=== PATIENT | male | born 1950 | race Caucasian/White ===

== ENCOUNTER 2016-10-20 12:07 | Emergency (ER) | payer OTHER ==
[~2016-10-20] VITALS: Ht 188 cm; Wt 100.0 kg
[~2016-10-20 12:07] MED LIST: 1-ME1LIQ PO; FEXO180 PO; PRAV40TA2 PO
[2016-10-20 12:11] VITALS: BP 185/99; PULSE 60; RESP 20; TEMP 98.6; O2SAT 95
[2016-10-20] MEDS ORDERED: LORA-361 PO (12:54)
[2016-10-20] MEDS ORDERED: ASPI1TAB69 PO (12:54)
[2016-10-20] MEDS ORDERED: AMLO5TAB2 PO (12:54)
[2016-10-20] MEDS ORDERED: SUDA30TA2 PO (12:54)
[2016-10-20] MEDS ORDERED: PRAV40TA2 PO (12:54)
[2016-10-20 12:56] VITALS: RESP 16; O2SAT 98
[2016-10-20 12:59] VITALS: BP 169/81; PULSE 58; RESP 16; O2SAT 98
[2016-10-20] MEDS ORDERED: SODIUM CHLORIDE 0.9% FLUSH 10 ML FLUSH IVF PRN (13:00)
[2016-10-20 13:14] VITALS: BP_SYST 158; BP_SYST 164; BP_SYST 166; BP_DIAS 86; BP_DIAS 87; BP_DIAS 89; RESP 16
[2016-10-20 13:20] LABS: AUTOMATED NEUTROPHIL # 4.2 TH/MM3 (1.8-7.7); BASOPHIL # 0.1 TH/MM3 (0-0.2); BASOPHIL % 0.7 % (0.0-2.0); EOSINOPHIL # 0.2 TH/MM3 (0-0.4); EOSINOPHIL % 2.5 % (0.0-4.0); HEMATOCRIT 45.6 % (39.0-51.0); HEMO FLAGS DIFF FINAL; LYMPH % 30.3 % (9.0-44.0); LYMPHOCYTE # 2.2 TH/MM3 (1.0-4.8); MEAN CELL VOLUME 89.2 FL (80.0-100.0); MEAN CORPUSCULAR HGB CONC 34.7 % (32.0-36.0); MONO % 9.5 % (0.0-8.0); PLATELET COUNT 199 TH/MM3 (150-450); RED BLOOD COUNT 5.11 MIL/MM3 (4.50-5.90); RED CELL DISTRIBUTION WIDTH 12.9 % (11.6-17.2); WHITE BLOOD COUNT 7.4 TH/MM3 (4.0-11.0)
[2016-10-20 13:28] LABS: APTT (PATIENT) 25.5 SEC (24.3-30.1)
--- NOTE | 2016-10-20 13:28 | PD ---
HPI Chief Complaint: Dizziness Time Seen by Provider: 13:08 Travel History International Travel<30 days: No Contact w/Intl Traveler<30days: No Traveled to known affect area: No History of Present Illness HPI Patient is a 65-year-old male presenting to emergency for evaluation of dizziness. Patient's symptoms started yesterday morning, lasted 3-4 hours and then resolved on its own. They restarted this morning at approximately 8 AM, patient states he felt dizzy worse with movement, as if the room is spinning. It was accompanied by mild nausea but no vomiting. Patient took 25 mg of meclizine this morning at 9 AM. Patient's denying any chest pain, shortness of breath, fever, chills, nasal congestion, abdominal pain. He reports that this happen to him in the past, he's had an outpatient MRI through an ear, nose, and throat doctor, stress test 2-3 months ago which was normal per his report. Patient states his been checking his heart rate today and has been the 50s. He also reports taking Claritin-D as well as Sudafed for his sinuses. The past medical history significant for hypertension and hyperlipidemia, he reports taking his amlodipine this morning. PFSH Past Medical History High Cholesterol: Yes Diabetes: No (BORDERLINE ) Diminished Hearing: No Hypertension: Yes Tetanus Vaccination: < 5 Years Influenza Vaccination: No (ALLERGIES ) Past Surgical History Ear Surgery: Yes (repair of ruptured tympanic membrane) Tonsillectomy: Yes Social History Alcohol Use: Yes (OCCASIONALLY) Tobacco Use: Yes (5 cig per day ) Substance Use: No Allergies-Medications (Allergen,Severity, Reaction): Coded Allergies: Flu Vaccine (Verified Allergy, Severe, Anaphylaxis, 10/20/16) Reported Meds & Prescriptions Reported Meds & Active Scripts Active Reported Pravastatin 40 Mg Tab 40 Mg PO HS Claritin (Loratadine) 10 Mg Tab 10 Mg PO DAILY Sudafed (Pseudoephedrine HCl) 30 Mg Tab 30 Mg PO Q6H PRN Aspirin 81 Mg Tabdr 81 Mg PO DAILY Amlodipine (Amlodipine Besylate) 5 Mg Tab 10 Mg PO DAILY Review of Systems Except as stated in HPI: all other systems reviewed are Neg HENT: No: Headaches Cardiovascular: No: Chest Pain or Discomfort Gastrointestinal: Positive: Nausea, No: Abdominal Pain Neurologic: Positive: Dizziness Physical Exam Narrative GENERAL: Well-developed, well-nourished, alert elderly gentleman. Resting comfortably in no acute distress. Family at bedside. SKIN: Focused skin assessment warm/dry. HEAD: Atraumatic. Normocephalic. EYES: Pupils equal and round. No scleral icterus. No injection or drainage. ENT: No nasal bleeding or discharge. Mucous membranes pink and moist. NECK: Trachea midline. No JVD. CARDIOVASCULAR: Bradycardic. No murmur appreciated. RESPIRATORY: No accessory muscle use. Clear to auscultation. Breath sounds equal bilaterally. GASTROINTESTINAL: Abdomen soft, non-tender, nondistended. Hepatic and splenic margins not palpable. MUSCULOSKELETAL: No obvious deformities. No clubbing. No cyanosis. No edema. NEUROLOGICAL: Awake and alert. No obvious cranial nerve deficits. Motor grossly within normal limits. Normal speech. PSYCHIATRIC: Appropriate mood and affect; insight and judgment normal. Data Data Last Documented VS Vital Signs Date Time Temp Pulse Resp B/P Pulse Ox O2 Delivery O2 Flow Rate FiO2 10/20/16 13:14 52 16 166/86 58 16 158/87 57 16 164/89 10/20/16 12:59 98 Room Air 10/20/16 12:11 98.6 Orders Electrocardiogram (10/20/16 ) Complete Blood Count With Diff (10/20/16 12:53) Comprehensive Metabolic Panel (10/20/16 12:53) Magnesium (Mg) (10/20/16 12:53) Ckmb (Isoenzyme) Profile (10/20/16 12:53) Troponin I (10/20/16 12:53) Act Partial Throm Time (Ptt) (10/20/16 12:53) Prothrombin Time / Inr (Pt) (10/20/16 12:53) Urinalysis - C+S If Indicated (10/20/16 12:53) Ecg Monitoring (10/20/16 12:53) Iv Access Insert/Monitor (10/20/16 12:53) Oximetry (10/20/16 12:53) Sodium Chloride 0.9% Flush (Ns Flush) (10/20/16 13:00) Orthostatic Vital Signs (10/20/16 13:10) Labs Laboratory Tests Test 10/20/16 13:00 White Blood Count 7.4 TH/MM3 Red Blood Count 5.11 MIL/MM3 Hemoglobin 15.8 GM/DL Hematocrit 45.6 % Mean Corpuscular Volume 89.2 FL Mean Corpuscular Hemoglobin 31.0 PG Mean Corpuscular Hemoglobin 34.7 % Concent Red Cell Distribution Width 12.9 % Platelet Count 199 TH/MM3 Mean Platelet Volume 8.5 FL Neutrophils (%) (Auto) 57.0 % Lymphocytes (%) (Auto) 30.3 % Monocytes (%) (Auto) 9.5 % Eosinophils (%) (Auto) 2.5 % Basophils (%) (Auto) 0.7 % Neutrophils # (Auto) 4.2 TH/MM3 Lymphocytes # (Auto) 2.2 TH/MM3 Monocytes # (Auto) 0.7 TH/MM3 Eosinophils # (Auto) 0.2 TH/MM3 Basophils # (Auto) 0.1 TH/MM3 CBC Comment DIFF FINAL Differential Comment Prothrombin Time 11.0 SEC Prothromb Time International 1.0 RATIO Ratio Activated Partial 25.5 SEC Thromboplast Time Sodium Level 136 MEQ/L Potassium Level 3.7 MEQ/L Chloride Level 100 MEQ/L Carbon Dioxide Level 25.6 MEQ/L Anion Gap 10 MEQ/L Blood Urea Nitrogen 16 MG/DL Creatinine 0.85 MG/DL Estimat Glomerular Filtration 90 ML/MIN Rate Random Glucose 102 MG/DL Calcium Level 9.6 MG/DL Magnesium Level 2.1 MG/DL Total Bilirubin 0.6 MG/DL Aspartate Amino Transf 48 U/L (AST/SGOT) Alanine Aminotransferase 69 U/L (ALT/SGPT) Alkaline Phosphatase 68 U/L Total Creatine Kinase 75 U/L Troponin I LESS THAN 0.02 NG/ML Total Protein 7.1 GM/DL Albumin 4.0 GM/DL MDM Medical Decision Making Medical Screen Exam Complete: Yes Emergency Medical Condition: Yes Medical Record Reviewed: Yes Interpretation(s) Laboratory Tests Test 10/20/16 13:00 White Blood Count 7.4 TH/MM3 Red Blood Count 5.11 MIL/MM3 Hemoglobin 15.8 GM/DL Hematocrit 45.6 % Mean Corpuscular Volume 89.2 FL Mean Corpuscular Hemoglobin 31.0 PG Mean Corpuscular Hemoglobin 34.7 % Concent Red Cell Distribution Width 12.9 % Platelet Count 199 TH/MM3 Mean Platelet Volume 8.5 FL Neutrophils (%) (Auto) 57.0 % Lymphocytes (%) (Auto) 30.3 % Monocytes (%) (Auto) 9.5 % Eosinophils (%) (Auto) 2.5 % Basophils (%) (Auto) 0.7 % Neutrophils # (Auto) 4.2 TH/MM3 Lymphocytes # (Auto) 2.2 TH/MM3 Monocytes # (Auto) 0.7 TH/MM3 Eosinophils # (Auto) 0.2 TH/MM3 Basophils # (Auto) 0.1 TH/MM3 CBC Comment DIFF FINAL Differential Comment Prothrombin Time 11.0 SEC Prothromb Time International 1.0 RATIO Ratio Activated Partial 25.5 SEC Thromboplast Time Sodium Level 136 MEQ/L Potassium Level 3.7 MEQ/L Chloride Level 100 MEQ/L Carbon Dioxide Level 25.6 MEQ/L Anion Gap 10 MEQ/L Blood Urea Nitrogen 16 MG/DL Creatinine 0.85 MG/DL Estimat Glomerular Filtration 90 ML/MIN Rate Random Glucose 102 MG/DL Calcium Level 9.6 MG/DL Magnesium Level 2.1 MG/DL Total Bilirubin 0.6 MG/DL Aspartate Amino Transf 48 U/L (AST/SGOT) Alanine Aminotransferase 69 U/L (ALT/SGPT) Alkaline Phosphatase 68 U/L Total Creatine Kinase 75 U/L Troponin I LESS THAN 0.02 NG/ML Total Protein 7.1 GM/DL Albumin 4.0 GM/DL Vital Signs Date Time Temp Pulse Resp B/P Pulse Ox O2 Delivery O2 Flow Rate FiO2 10/20/16 12:59 58 16 169/81 98 Room Air 10/20/16 12:56 16 98 Room Air 10/20/16 12:45 17 Room Air 10/20/16 12:11 98.6 60 20 185/99 95 Room Air Differential Diagnosis Benign positional vertigo versus central vertigo versus cardiac arrhythmia versus electrolyte abnormality versus orthostatic hypotension versus symptomatic bradycardia versus other Narrative Course Patient is a 65-year-old male presenting to the emergency room for evaluation of dizzy spells. Patient has had a history of the same, he's had a negative outpatient workups per his report. Workup includes MRI, stress test, EKGs, labs with a [employer] maintenance worker and ear, nose, throat specialist. Patient has been taking Claritin-D and Sudafed for a sinus condition, he was encouraged to take one or the other not both. Or take plain Claritin and the Sudafed. Upon reassessment patient was no longer feeling dizzy. CBC, chemistry, coags unremarkable, troponin is negative. Patient was encouraged to maintain adequate fluid intake, he was encouraged to follow up with his primary doctor regarding possible referral for vestibular rehabilitation. Patient was advised to return to emergency department immediately for any new or worsening symptoms. Patient will be given refill of meclizine. Patient and family member verbalized understanding of discharge instructions. Patient is stable for discharge. Diagnosis Primary Impression: Dizziness Referrals: Primary Care Physician Patient Instructions: Dizziness (ED), General Instructions, Vertigo (ED) Additional Instructions: Follow-up with your primary doctor Return to emergency department immediately for any new or worsening symptoms Med/Other Pt SpecificInfo: Prescription(s) given Scripts Meclizine 25 Mg Tab25 Mg PO TID PRN (VERTIGO) 10 Days Ref 0 Prov:Apurva Huitron 10/20/16 Disposition: 01 DISCHARGE HOME Condition: Stable Apurva Huitron Oct 20, 2016 13:28
[2016-10-20 13:38] LABS: ALKALINE PHOSPHATASE 68 U/L (45-117); ALT (GPT) 69 U/L (12-78); ANION GAP 10 MEQ/L (5-15); AST (GOT) 48 U/L (15-37); BICARBONATE 25.6 MEQ/L (21.0-32.0); BLOOD UREA NITROGEN 16 MG/DL (7-18); CHLORIDE 100 MEQ/L (98-107); GLOMERULAR FILTRATION RATE 90 ML/MIN (>89); MAGNESIUM 2.1 MG/DL (1.5-2.5); SODIUM (NA) 136 MEQ/L (136-145); TOTAL BILIRUBIN ADULT 0.6 MG/DL (0.2-1.0)
[2016-10-20 13:49] LABS: CREATINE KINASE 75 U/L (39-308); POTASSIUM 3.7 MEQ/L (3.5-5.1)
[2016-10-20 14:35] LABS: BLOOD, URINE SMALL (NEG); COMMENT (UR) CULT NOT INDICATED; CULTURE IF INDICATED CULT NOT INDICATED; GLUCOSE,URINE NEG (NEG); KETONE, URINE 40 mg/dL (NEG); MUCUS URINE FEW /lpf (OCC); NITRITE,URINE NEG (NEG); PH, URINE 5.5 (5.0-8.5); URINE COLOR YELLOW (YELLW/STRAW)
[2016-10-20] MEDS ORDERED: MECL-62 PO (14:39)
[2016-10-20 14:45] VITALS: BP 140/77; TEMP 97.8
--- NOTE | 2016-10-20 18:31 | EKG ---
Date Performed: 10/20/2016 Time Performed: 12:47:38 PTAGE: 65 years EKG: SINUS BRADYCARDIA BORDERLINE ECG NO SIGNIFICANT CHANGE FROM PRIOR ELECTROCARDIOGRAM. PREVIOUS TRACING : 03/07/2016 10.58 DOCTOR: Honorio Orozco Interpretating Date/Time 10/20/2016 18:30:37
== END 2016-10-20 14:45 | disposition home or self-care (01) ==
LOC: NEPD 12:07
DX: R42 Dizziness and giddiness (principal); R00.1 Bradycardia, unspecified; R11.0 Nausea; I10 Essential (primary) hypertension; E78.5 Hyperlipidemia, unspecified; Z72.0 Tobacco use
CPT/HCPCS: 80053; 81001; 82550; 83735; 84484; 85025; 85610; 85730; 93005